=== PATIENT | female | born 1995 | race Caucasian/White ===

== ENCOUNTER 2022-09-28 16:00 | Outpatient (CLI) | payer OTHER ==
[2022-09-28 20:38] LABS: CALCIUM 8.9 mg/dL (8.5-10.3); CREATININE 0.8 mg/dL (0.4-1.0); POTASSIUM 3.4 mmol/L (3.5-5.0)
== END 2022-09-28 16:15 | disposition home or self-care (01) ==
LOC: LAB.N 16:00
PROVIDERS: ATTEND Physician Assistant Medical
DX: I10 Essential (primary) hypertension (principal)
CPT/HCPCS: 36415; 80048; 84443

== ENCOUNTER 2022-11-11 10:27 | Outpatient (CLI) | payer OTHER ==
[2022-11-11 10:39] LABS: HCT - HEMATOCRIT 43.1 % (37.0-47.0); HGB - HEMOGLOBIN 14.2 g/dL (12.0-16.0); MEAN CORPUSCULAR HEMOGLOBIN 30.5 pg (27.0-31.0); MEAN CORPUSCULAR HGB CONC 32.9 g/dL (32.0-36.0); MEAN CORPUSCULAR VOLUME 92.5 fL (81.0-99.0); RED BLOOD COUNT 4.66 10^6/uL (4.20-5.40); WHITE BLOOD COUNT 12.5 x10^3/uL (4.8-10.8)
[2022-11-11 10:45] LABS: ESTIMATED AVERAGE GLUCOSE 108 mg/dL (70-100); HEMOGLOBIN A1c% 5.4 % (4.27-6.07)
[2022-11-11 10:54] LABS: ALBUMIN 4.4 g/dL (3.2-5.5); ALBUMIN/GLOBULIN RATIO 1.1 (1.0-2.2); BILIRUBIN,TOTAL 0.4 mg/dL (0.2-1.0); CALCIUM 9.5 mg/dL (8.5-10.3); CREATININE 0.7 mg/dL (0.6-1.3); TOTAL PROTEIN 8.3 g/dL (6.4-8.9)
[2022-11-11 11:14] LABS: FERRITIN 25.9 ng/mL (11.0-306.8)
[2022-11-15 21:07] LABS: ANTINUCLEAR ANTIBODIES IFA Positive (.)
== END 2022-11-11 10:28 | disposition home or self-care (01) ==
LOC: LAB 10:27
PROVIDERS: ATTEND Nurse Practitioner
DX: O03.9 Complete or unspecified spontaneous abortion without complication (principal); N92.6 Irregular menstruation, unspecified
CPT/HCPCS: 36415; 80053; 82728; 83036; 85027; 86038

== ENCOUNTER 2022-12-12 16:49 | Outpatient (CLI) | payer OTHER | END 2022-12-12 16:50 | disposition home or self-care (01) | LOC: LAB 16:49 | PROVIDERS: ATTEND Nurse Practitioner | DX: Z32.01 Encounter for pregnancy test, result positive (principal) | CPT/HCPCS: 36415; 84702 ==

== ENCOUNTER 2022-12-15 12:23 | Outpatient (CLI) | payer OTHER | END 2022-12-15 12:24 | disposition home or self-care (01) | LOC: LAB 12:23 | PROVIDERS: ATTEND Nurse Practitioner | DX: Z32.01 Encounter for pregnancy test, result positive (principal) | CPT/HCPCS: 36415; 84702 ==

== ENCOUNTER 2023-01-09 18:13 | Outpatient (CLI) | payer OTHER ==
--- NOTE | 2023-01-10 09:09 | Ultrasound Report ---
PROCEDURE: OB First Trimester w/TV INDICATIONS: POSITIVE TEST OUTSIDE/PRIOR DATING DATA: Last menstrual period (LMP): Unknown. LMP-based estimated date of delivery (VEDA): Not applicable. First dating scan (date and location): 12/15/2022. Estimated date of delivery (VEDA) from first dating scan: 08/08/2023. TECHNIQUE: Real-time scanning was performed of the fetus and maternal pelvic organs, with image documentation. Endovaginal scanning was also performed to better visualize the fetus and maternal ovaries. COMPARISON: 12/15/2022 FINDINGS: Intrauterine gestational sac present. Embryo: pole measures 2.99 cm, corresponding to 9 weeks 6 days. Heart rate: 162 bpm. Other: No perigestational fluid collection. Measurement variability in dating: +/- 4 weeks by LMP, +/- 7 days by mean sac diameter (use before 6 weeks gestation if crown-rump length not able to be measured), +/- 5 days by crown-rump length (6-12 weeks gestation). Maternal organs: Ovaries appear within normal limits. IMPRESSION: Single living intrauterine at 9 weeks 6 days, VEDA of 08/08/2023. Findings are concordant wit h prior ultrasound dating. Reviewed by: Bryan Do on 01/10/2023 9:07 AM PDT Approved by: Bryan Do on 01/10/2023 9:07 AM PDT Station ID: [id number]
== END 2023-01-09 18:14 | disposition home or self-care (01) ==
LOC: DI 18:13
PROVIDERS: ATTEND Nurse Practitioner
DX: Z32.01 Encounter for pregnancy test, result positive (principal)

== ENCOUNTER 2023-01-10 08:00 | Outpatient (CLI) | payer OTHER ==
[2023-01-10 21:55] LABS: CHLAMYDIA TRACHOMATIS DNA NEGATIVE (NEGATIVE); NEISSERIA GONORRHOEAE DNA NEGATIVE (NEGATIVE); TRICHOMONAS VAGINALIS DNA NEGATIVE (NEGATIVE)
== END 2023-01-10 23:59 | disposition home or self-care (01) ==
LOC: LAB.WC 08:00
PROVIDERS: ATTEND Nurse Practitioner
DX: Z11.3 Encounter for screening for infections with a predominantly sexual mode of transmission (principal)
CPT/HCPCS: 87491; 87591; 87661

== ENCOUNTER 2023-01-11 12:29 | Outpatient (CLI) | payer OTHER | END 2023-01-11 12:30 | disposition home or self-care (01) | LOC: LAB 12:29 | PROVIDERS: ATTEND Nurse Practitioner | DX: Z34.90 Encounter for supervision of normal pregnancy, unspecified, unspecified trimester (principal) ==

== ENCOUNTER 2023-02-26 04:16 | Emergency (ER) | payer OTHER ==
[2023-02-26 04:46] VITALS: O2SAT 99
[2023-02-26 04:54] LABS: BILIRUBIN,URINE NEGATIVE (NEGATIVE); GLUCOSE, URINE (UA) NEGATIVE (NEGATIVE); KETONES,URINE (UA) NEGATIVE (NEGATIVE); LEUKOCYTE ESTERASE, URINE NEGATIVE (NEGATIVE); NITRITE,URINE NEGATIVE (NEGATIVE); OCCULT BLOOD,URINE LARGE (NEGATIVE); PH,URINE 5.5 PH (5.0-7.5); PROTEIN,URINE 100 mg/dL (NEGATIVE); UROBILINOGEN,URINE 0.2 (NORMAL) E.U./dL (NORMAL)
--- NOTE | 2023-02-26 05:07 | ED Physician Documentation ---
PD HPI FEMALE - Stated complaint Stated Complaint: FEMALE - Chief complaint Chief Complaint: UTI - History obtained from History obtained from: Patient - Additional information Additional information: Patient is a 27-year-old female G2, P0 Who is approximately 16 weeks Presenting for evaluation of noticing some blood in her urine earlier this morning. She denies dysuria, frequency. She does report some lower pelvic cramping starting this morning. She has not noticed any blood in her underwear. She has not noticed any blood when she wipes. She does have ongoing low back pain that is unchanged through the . No fever, dizziness, chest pain, difficulty breathing. She did see hematology for evaluation of Thrombocytosis and leukocytosis Which she has had a long history of.She called on-call OB this morning who recommended she come to the emergency department for evaluation as she has had a prior miscarriage. She is unsure how far along she was in her prior with a miscarriage as she states it was early on. Review of Systems Constitutional: denies: Fever Cardiac: denies: Chest pain / pressure Respiratory: denies: Dyspnea GI: denies: Abdominal Pain : reports: Hematuria PD PAST MEDICAL HISTORY - Past Medical History Past Medical History: Yes [employer]: Miscarriage(s) - Past Surgical History HEENT: Tonsil/Adenoidectomy - Present Medications Home Medications: Ambulatory Orders Medication Instructions Recorded Confirmed Doxylamine Succinate/Vit B6 1 each PO PRN PRN 01/06/23 02/26/23 [Doxylamine-Pyridoxine 10-10 mg] Metoclopramide [Reglan] 10 mg PO Q6H PRN 01/06/23 02/26/23 Pnv No.95/Ferrous Fum/Folic AC 1 each PO DAILY 01/06/23 02/26/23 [ Caplet] metFORMIN [Glucophage] 500 mg PO DAILY PM 01/06/23 02/26/23 Aspirin [Vazalore] 81 mg PO DAILY 02/26/23 02/26/23 Labetalol HCl 200 mg PO BID 02/26/23 02/26/23 Levothyroxine [Synthroid] 100 mcg PO QDAC 02/26/23 02/26/23 Sertraline HCl 150 mg PO DAILY 02/26/23 02/26/23 - Allergies Allergies/Adverse Reactions: Allergies Allergy/AdvReac Type Severity Reaction Status Date / Time amoxicillin Allergy Rash Verified 02/26/23 04:22 - Social History Does the pt smoke?: No Smoking Status: Never smoker PD ED PE NORMAL - General General: Alert and oriented X 3, No acute distress, Well developed/nourished - HEENT HEENT: Atraumatic - Respiratory Respiratory: No respiratory distress - Abdomen Abdomen: Normal bowel sounds, Soft, Non tender, Non distended - Derm Derm: Warm and dry - Neuro Neuro: Normal speech Results - Vitals Vitals: Vital Signs - 24 hr 02/26/23 02/26/23 04:30 05:29 Temperature 36.7 C Heart Rate 94 Respiratory 18 Rate Blood Pressure 148/106 H 136/87 H O2 Saturation 99 Oxygen O2 Source Room air - Labs Labs: Microbiology 02/26/23 04:34 Urine Culture - Preliminary Urine,Clean Catch CULTURE IN PROGRESS. RESULTS TO FOLLOW. Laboratory Tests 02/26/23 04:34 Urine Color LT RED Urine Clarity CLOUDY Urine pH 5.5 Ur Specific Floyd 1.025 Urine Protein 100 H Urine Glucose (UA) NEGATIVE Urine Ketones NEGATIVE Urine Occult Blood LARGE H Urine Nitrite NEGATIVE Urine Bilirubin NEGATIVE Urine Urobilinogen 0.2 (NORMAL) Ur Leukocyte Esterase NEGATIVE Urine RBC TNTC H Urine WBC 0-3 Ur Squamous Epith Cells RARE Squamous Urine Bacteria Rare Urine Mucus Few Strands Ur Microscopic Review INDICATED Urine Culture Comments NOT INDICATED PD Medical Decision Making - ED course Complexity details: reviewed results, d/w patient, d/w family ED course: Bedside ultrasound demonstrates intrauterine with positive cardiac activity and movements. heart rate is estimated around 150. Patient with blood in her urine noticed this morning. She is approximately 16 weeks . No blood in her underwear to suggest that this is a vaginal source. She has no flank tenderness or fever. No suprapubic tenderness. She does have a history of kidney stones but does not have pain to suggest an acute stone at this time. There is some blood noted in her urine. No other markers for infection. Rare bacteria. We will send a culture to see if there is bacteriuria in which case would recommend treatment as she is .Her urine is not grossly bloody but more blood-tinged. Patient counseled on continued hydration and need for close follow-up. She is advised on concerning symptoms to return for such as gross hematuria, pain, fever or any other concerns. Departure - Departure Disposition: 01 Home, Self Care Clinical Impression: Hematuria, with suprapubic cramping, antepartum Condition: Stable Instructions: ED Hematuria Follow-Up: Jud Montes De Oca ARNP [Provider Admit Priv/Credential] - Comments: At this time your baby has a good heartbeat and is moving around inside your uterus which is also a good sign. We did find that you have blood in your urine. Your urine does not show other markers for infection but I am still sending it for a culture to ensure there is no Sign of infection. As you are not having any pain or other symptoms at this time we have decided to hold off on lab testing and other imaging. However if you develop any worsening symptoms such as fever, flank pain, worsening bleeding, worsening pain or have any concerns please return to the emergency department. I would recommend close follow-up with your PATHOLOGY LAB TECHNICIAN. Discharge Date/Time: 02/26/23 05:32
[2023-02-26 05:12] LABS: CLARITY,URINE CLOUDY (CLEAR)
[2023-02-26 05:13] LABS: BACTERIA,URINE Rare /HPF (None Seen); MUCUS,URINE Few Strands; RBC,URINE TNTC /HPF (0-5); SQUAMOUS EPITHELIAL CELL,UR RARE Squamous (<= Few); WBC,URINE 0-3 /HPF (0-5)
[2023-02-26 05:33] VITALS: BP 136/87
== END 2023-02-26 05:32 | disposition home or self-care (01) ==
LOC: ED 04:16
DX: O99.891 Other specified diseases and conditions complicating pregnancy (principal); R31.0 Gross hematuria; Z3A.16 16 weeks gestation of pregnancy
CPT/HCPCS: 81001; 81003; 87086; 99283

== ENCOUNTER 2023-03-21 01:50 | Observation (INO) | payer OTHER ==
[2023-03-21] MEDS ORDERED: ACETAMINOPHEN 500 MG TABLET PO SCH (02:20)
[2023-03-21] MEDS ORDERED: LACTATED RINGERS 1,000 ML IV ONE (02:27)
[2023-03-21] MEDS ORDERED: MORPHINE 2 MG/ML CARPUJECT IVP SCH ×2 (02:30→05:16)
[2023-03-21] MEDS ORDERED: ONDANSETRON 4 MG/2 ML VIAL IVP PRN (02:38)
[2023-03-21 02:39] LABS: BILIRUBIN,URINE NEGATIVE (NEGATIVE); GLUCOSE, URINE (UA) NEGATIVE (NEGATIVE); KETONES,URINE (UA) TRACE mg/dL (NEGATIVE); LEUKOCYTE ESTERASE, URINE NEGATIVE (NEGATIVE); NITRITE,URINE NEGATIVE (NEGATIVE); OCCULT BLOOD,URINE TRACE-INTA (NEGATIVE); PH,URINE 6.5 PH (5.0-7.5); PROTEIN,URINE NEGATIVE (NEGATIVE); UROBILINOGEN,URINE 0.2 (NORMAL) E.U./dL (NORMAL)
[2023-03-21 02:46] LABS: BACTERIA,URINE Rare /HPF (None Seen); CLARITY,URINE CLEAR (CLEAR); RBC,URINE 0-5 /HPF (0-5); SQUAMOUS EPITHELIAL CELL,UR FEW Squamous (<= Few); WBC,URINE 0-3 /HPF (0-5)
[2023-03-21 03:08] VITALS: O2SAT 98
[2023-03-21] MEDS: LACTATED RINGERS 1,000 ML IV ONE ×2 (05:12→07:38)
[2023-03-21 06:25] LABS: BASOPHILS % (AUTO) 0.3 %; EOSINOPHILS % (AUTO) 2.3 %; HCT - HEMATOCRIT 35.8 % (37.0-47.0); HGB - HEMOGLOBIN 11.8 g/dL (12.0-16.0); LYMPHOCYTES % (AUTO) 12.1 %; MEAN CORPUSCULAR HEMOGLOBIN 30.8 pg (27.0-31.0); MEAN CORPUSCULAR VOLUME 93.5 fL (81.0-99.0); MEAN PLATELET VOLUME 9.5 fL (7.9-10.8); MONOCYTES % (AUTO) 5.6 %; NEUTROPHILS % (AUTO) 79.1 %; PLT - PLATELET COUNT 500 10^3/uL (130-450); RED BLOOD COUNT 3.83 10^6/uL (4.20-5.40); RED CELL DISTRIBUTION WIDTH 14.3 % (12.0-15.0); WHITE BLOOD COUNT 23.2 x10^3/uL (4.8-10.8)
[2023-03-21 06:27] LABS: ABNORMAL LYMPHS % (MANUAL) 0 %
[2023-03-21 06:40] LABS: ALBUMIN 3.8 g/dL (3.2-5.5); ALBUMIN/GLOBULIN RATIO 1.1 (1.0-2.2); BILIRUBIN,TOTAL 0.3 mg/dL (0.2-1.0); CALCIUM 11.4 mg/dL (8.5-10.3); POTASSIUM 3.9 mmol/L (3.5-4.5); TOTAL PROTEIN 7.3 g/dL (6.4-8.9)
[2023-03-21 06:49] LABS: BAND NEUTROPHILS % (MANUAL) 15 %; DIFFERENTIAL COMMENT MANUAL DIFFERENTIAL; EOSINOPHILS # (MANUAL) 0.7 10^3/uL (0-0.7); LYMPHOCYTES # (MANUAL) 1.4 10^3/uL (1.5-3.5); LYMPHOCYTES % (MANUAL) 6 %; MONOCYTES # (MANUAL) 0.7 10^3/uL (0.0-1.0); NEUTROPHILS # (MANUAL) 20.4 10^3/uL (1.5-6.6); PLATELET ESTIMATE, MANUAL INCREASED (>450,000) (NORMAL); RBC MORPHOLOGY (MULTIPLE) NORMAL APPEARANCE (NORMAL)
--- NOTE | 2023-03-21 08:13 | HISTORY & PHYSICAL EXAMINATION ---
Admit History - Visit Reason Visit Reason: Other (kidney stone) - : 2 Parity: 0 Premature: 0 Ectopic: 0 : 1 Care: positive: [facility], Other (KG murry) Risk/History: positive: High risk Complications This : positive: Other (LMP: unknown VEDA by LMP: unknown US: 12/15/22 6+4 Final VEDA: 08/08/2023 MEDICALLY COMPLEX PATIENT ANC c/b: 1. chronic HTN - started on nifedapine initially, did not control BP, now on labetalol 200mg BID [ ] on LDASA [ ] baseline labs done by [facility] 03/10 - paleology professor 0.62 [ ] will need N) Smoking Status: Never smoker - Mother's Labs Mother's Blood Type: positive: A Mother's RH: positive: Positive GBS: positive: Other Rubella Status: positive: Immune - Other Maternal History Other Maternal History: ANL: A+/abneg/RI/RPRNR/HepBneg/HIVneg/GCCTnegneg ANC c/b: LMP: unknown US: 12/15/22 6+4 Final VEDA: 08/08/2023 MEDICALLY COMPLEX PATIENT ANC c/b: 1. chronic HTN - started on nifedapine initially, did not control BP, now on labetalol 200mg BID [ ] on LDASA [ ] baseline labs done by [facility] 03/10 - paleology professor 0.62 [ ] will need NSTs from 32w on, growth U/S monthly after 24w [ ] IOL 2. hypothyroidism - on synthroid, was off of meds at start of [ ] needs TSH Q trimester: : 3. BLOOD DYSCRAZIAS - elevated plts (>500), elevated WBC, has seen heme/ onc before - this has been present since teenager, s/p bone marrow biopsy, no diagnosis at this time. 4. fibroid - 4cm, fundal, followed by [facility] 5. obesity - on ASA - if BMI > 50, cannot deliver on [place] - level II with [facility] 6. LONG STANDING h/o KIDNEY STONES - several lithotripsies in her life - genetic - calcium based - ran out of J and got another one, creatinine 03/21 increased from 0.7 baseline to 1.0. U/S done -- no urologist on [place], sent out. 6. VZNI / "unsure" pap status [ ] pap PP [ ] vaccinate PP 7. [place] [ ] FOB - CAM - deploying, patient will move to [place] to be with her family during this -- given copy of her records 03/21 8. Anxiety / Depression [ ] on sertraline 150mg [ ] EPDS Q trimester [ ] establish care with mental health provider - care with post- 9. dated by 1 tri U/S - prior LMP was miscarriage, 2 weeks before + UPT 10. Known migraine patient - M gave her sumatriptan, she has not taken it 11. positive OTONIEL - "they think I have an autoimmune condition, and all the other tests were negative" PMH: see above PSH: bone marrow biopsy, tonsillectomy, several lithotripsies - last apr 2022 POB: unknown gestational age at loss - first trimester PGYN: unsure when her last pap was has PCOS - had been on metformin, stopped recently so she could take OGTT Meds: PNV, sertraline, synthroid, ASA, labetalol 200mg BIG All: AMOX/ PCNs Soc: neg x3, lives with FOB "Cam" - [place] Fam: kidney stones - HPI Vital Signs Temperature 98.1 F 03/21/23 02:00 Heart Rate 86 03/21/23 02:00 Respiratory Rate 16 03/21/23 02:00 Blood Pressure 118/74 03/21/23 02:00 Temperature 98.1 F 03/21/23 06:53 Heart Rate 75 03/21/23 06:53 Respiratory Rate 16 03/21/23 06:53 Blood Pressure 127/77 03/21/23 06:53 O2 Saturation 98 03/21/23 06:53 If not protocol: Oxygen Flow, liters/minute Meds/Allgy - Home Medications Home Medications: Ambulatory Orders Medication Instructions Recorded Confirmed Doxylamine Succinate/Vit B6 1 each PO PRN PRN 01/06/23 02/26/23 [Doxylamine-Pyridoxine 10-10 mg] Metoclopramide [Reglan] 10 mg PO Q6H PRN 01/06/23 02/26/23 Pnv No.95/Ferrous Fum/Folic AC 1 each PO DAILY 01/06/23 02/26/23 [ Caplet] metFORMIN [Glucophage] 500 mg PO DAILY PM 01/06/23 02/26/23 Aspirin [Vazalore] 81 mg PO DAILY 02/26/23 02/26/23 Labetalol HCl 200 mg PO BID 02/26/23 02/26/23 Levothyroxine [Synthroid] 100 mcg PO QDAC 02/26/23 02/26/23 Sertraline HCl 150 mg PO DAILY 02/26/23 02/26/23 - Allergies Allergies/Adverse Reactions: Allergies Allergy/AdvReac Type Severity Reaction Status Date / Time amoxicillin Allergy Rash Verified 02/26/23 04:22 Physical - Abdominal Exam Vital Signs: Temp Pulse Resp BP Pulse Ox O2 Flow Rate 98.1 F 75 16 127/77 98 03/21/23 06:53 03/21/23 06:53 03/21/23 06:53 03/21/23 06:53 03/21/23 06:53 Uterine Resting Tone: positive: Soft - Speculum Exam Speculum Exam Performed: positive: No Plan for Labor - Plan For Labor I expect patient to be DC'd or transferred within 96 hours.: Yes Plan for Labor: 27yo with kidney stone on L that is obstructing L ureter -- compromizing kidney -- U/S shows NO L ureteral jet, AND L hydronephrosis -- Shipping Track Supervisor from 0.62 03/10 -- to 1.0 today 03/21. although 1.0 is considered wnl outside of , it is elevated for and a marked increase from 03/10 of note - no improvement with 2L IVF of note also -- she "loves" orange juice and typically drinks several glasses a day. She ran out of OJ two days ago, and she has known calcium based kidney stones. plan[place] to urologists in the area will set up with outpatient or have pt present to ED at a hospital with on-call urologist, depending on what on-call urologist we can find recommends. after discussion with [employer] information services manager urologist: -- no lithotripsy in -- could consider stent / percu nephrostomy -- and we're not at that point yet - so D/C home with pain meds and precautions after discussing this with patient and her mom: -- patient with complex history -- limited ability to predict sepsis 2'2 baseline WBC / plt dyscrazia -- pt unable to drink water when she's in this much pain -- will keep under obs here for pain control, hydration, and re-testing of labs also putting in STAT urology referral through clinic in order to have her evaluated for possible stent.
--- NOTE | 2023-03-21 08:45 | Ultrasound Report ---
PROCEDURE: Retroperitoneal INDICATIONS: kidney stone - increasing creatinine TECHNIQUE: Real-time scanning was performed of the retroperitoneal organs, with image documentation. COMPARISON: None. FINDINGS: Kidneys: Kidneys are normal in size. Right kidney measures 11.9 cm long; left kidney measures 14.2 cm long. Right renal cortical thickness is 1.0 cm; left renal cortical thickness is 1.7 cm. There ar e 2 nonobstructing stones in the left kidney, including an upper pole stone measuring 9 mm and a lowe r pole stone measuring 6 mm. There is mild to moderate left hydronephrosis. The left ureter is not vi sualized. Bladder: Pre-void bladder volume is 138.0 mL. Post-void residual is 0 mL. Pre-void images demonstr ate no intraluminal masses or stones. On pre-void images, unilateral right ureteral jet is noted wit h color Doppler interrogation. (Of note, ureteral jets may not be detectable in up to 25% of cases d ue to insufficient differences in specific gravity between ureteral and bladder urine). Miscellaneous: No free abdominal fluid. There is a living second trimester intrauterine present with a heart rate is 140 bpm. IMPRESSION: 1. Living second trimester intrauterine . 2. There are bilateral nonobstructing calyceal stones involving the left kidney. 3. There is mild to moderate left hydronephrosis as well as nonvisualization of a left ureteral jet. The presence of left hydronephrosis may potentially simply be related to . However, an obstr ucting left ureteral stone is not excluded. Comment: Recommend clinical correlation and urological consultation. Reviewed by: Delfin Hollins MD on 03/21/2023 8:44 AM PST Approved by: Delfin Hollins MD on 03/21/2023 8:44 AM PST Station ID: [id number]
[2023-03-21] MEDS ORDERED: SODIUM CHLORIDE FLUSH 0.9% 10 ML SYRINGE IVP PRN (09:10)
[2023-03-21] MEDS ORDERED: fentaNYL 100 MCG/2 ML VIAL IVP PRN (09:10)
[2023-03-21] MEDS ORDERED: MORPHINE 2 MG/ML CARPUJECT IVP PRN ×2 (10:03→15:59)
[2023-03-21] MEDS: SODIUM CHLORIDE FLUSH 0.9% 10 ML SYRINGE IVP SCH ×2 (10:36→18:00)
[2023-03-21] MEDS: LABETALOL 100 MG TABLET PO SCH ×2 (10:37→22:37)
[2023-03-21] MEDS: LEVOTHYROXINE 100 MCG TABLET PO SCH (10:37)
[2023-03-21] MEDS: ONDANSETRON 4 MG/2 ML VIAL IVP PRN ×2 (10:44→15:24)
[2023-03-21] MEDS: MORPHINE 2 MG/ML CARPUJECT IVP PRN ×3 (10:44→15:24)
[2023-03-21] MEDS: LACTATED RINGERS 1,000 ML IV SCH ×3 (12:39→20:42)
[2023-03-21] MEDS: oxyCODONE 5 MG TABLET PO PRN ×2 (17:45→21:39)
[2023-03-21] MEDS ORDERED: TAMSULOSIN 0.4 MG CAPSULE PO SCH (18:00)
[2023-03-21] MEDS ORDERED: ASPIRIN EC 81 MG TABLET PO ONE (20:47)
[2023-03-21] MEDS ORDERED: SERTRALINE 50 MG TABLET PO SCH (21:00)
[2023-03-21] MEDS ORDERED: ASPIRIN CHEW 81 MG TABLET PO SCH (21:00)
[2023-03-22] MEDS: LACTATED RINGERS 1,000 ML IV SCH ×4 (00:49→12:13)
[2023-03-22] MEDS: oxyCODONE 5 MG TABLET PO PRN (01:37)
[2023-03-22] MEDS: SODIUM CHLORIDE FLUSH 0.9% 10 ML SYRINGE IVP SCH ×3 (02:00→15:51)
--- NOTE | 2023-03-22 07:28 | PROVIDER PROGRESS NOTE ---
Subjective - Subjective Subjective: Subjective: Patient is a 27-year-old -0-1-0 at 20 weeks 1 day gestation Overnight events: Passed a 5 mm stone. Still having left-sided pain, likely from additional larger stone. Objective: Physical exam: Constitutional: alert, oriented, no acute distress Cardiovascular: Regular rate and rhythm. No murmurs, rubs, gallops. Respiratory: No respiratory distress. Clear to auscultation bilaterally. Extremities: No swelling or tenderness. No cords. Distal pulses intact. Psych: affect and mood appropriate, normal interaction, good eye contact. Assessment and plan 1. Nephrolithiasis, recurrent, male symptomatic -Passed 1 stone, other stone may be too large. -Continue with pain control. Ideally would build to transition to home medications -Continue IV and oral hydration as well as tamsulosin -Referral to urology pending 2. 20 weeks gestation -Heart tones every shift 3. Chronic hypertension: -Continues low-dose aspirin. Labetalol 200 mg twice daily. Blood pressure normal. 4. Hypothyroidism -Will increase her home levothyroxine dose. 5. Anxiety and depression -Mood is good today. Continue sertraline. 6. Blood dyscrasias: -No acute change Objective - Vital Signs/Intake & Output Vital Signs: Vital Signs x48h Temp Pulse Resp BP Pulse Ox 03/22/23 04:14 89 18 107/69 03/22/23 01:38 97.9 F 90 16 118/70 98 Intake & Output: Intake & Output 03/19/23 03/20/23 03/21/23 03/22/23 23:59 23:59 23:59 23:59 Intake Total 4220.833 1995.833 Output Total 2900 550 Balance 2754.957 8493.833 - Lab Results Fish Bones: 03/21/23 05:50 03/21/23 05:50 Other Labs: Lab Results x24hrs 03/22/23 Range/Units 06:01 TSH 6.00 H (0.34-5.60) uIU/mL
[2023-03-22] MEDS: LABETALOL 100 MG TABLET PO SCH (08:29)
[2023-03-22] MEDS: LEVOTHYROXINE 100 MCG TABLET PO SCH (08:33)
[2023-03-22 08:40] VITALS: BP 125/78
[2023-03-22] MEDS: ACETAMINOPHEN 500 MG TABLET PO SCH ×2 (08:49→15:16)
[2023-03-22] MEDS ORDERED: TAMSULOSIN 0.4 MG CAPSULE PO SCH (11:18)
[2023-03-22] MEDS ORDERED: SERTRALINE 50 MG TABLET PO SCH (11:19)
[2023-03-22] MEDS ORDERED: ASPIRIN CHEW 81 MG TABLET PO SCH (11:19)
--- NOTE | 2023-03-22 15:27 | DISCHARGE SUMMARY ---
Discharge Summary Admit Date: 03/21/23 Discharge Date: 03/22/23 Discharging Provider: Aaron Sanabria MD Code Status: Attempt Resuscitation Condition at Discharge: Stable Discharge Disposition: 01 Home, Self Care - DIAGNOSES Admission Diagnoses: 20 weeks gestation Nephrolithiasis Chronic hypertension Blood dyscrasias Uterine fibroids Obesity Discharge Diagnoses with Status of Each Condition: 20 weeks gestation Nephrolithiasis Chronic hypertension Blood dyscrasias Uterine fibroids Obesity Stable: Passed 2 stones, although large stone likely still present - HPI History of Present Illness: Pain much better today. Has not required pain medications. Desires to go home. Will follow-up with urology. - HOSPITAL COURSE Hospital Course: Patient was admitted at 20 weeks gestation with nephrolithiasis. She has a long history of nephrolithiasis and feels like the onset of this is similar. She was found to have 2 obstructing stones and was started on pain medications and tamsulosin. She did pass 1 large stone as well as a smaller stone. The larger stone is likely still inside, but her pain is greatly improved. She does have follow-up arranged with urology and desired to go home and was discharged in good condition. - ALLERGIES Allergies/Adverse Reactions: Allergies Allergy/AdvReac Type Severity Reaction Status Date / Time amoxicillin Allergy Rash Verified 02/26/23 04:22 - MEDICATIONS Home Medications: Ambulatory Orders Medication Instructions Recorded Confirmed Doxylamine Succinate/Vit B6 1 each PO PRN PRN 01/06/23 02/26/23 [Doxylamine-Pyridoxine 10-10 mg] Metoclopramide [Reglan] 10 mg PO Q6H PRN 01/06/23 02/26/23 Pnv No.95/Ferrous Fum/Folic AC 1 each PO DAILY 01/06/23 02/26/23 [ Caplet] metFORMIN [Glucophage] 500 mg PO DAILY PM 01/06/23 02/26/23 Aspirin [Vazalore] 81 mg PO DAILY 02/26/23 02/26/23 Labetalol HCl 200 mg PO BID 02/26/23 02/26/23 Levothyroxine [Synthroid] 100 mcg PO QDAC 02/26/23 02/26/23 Sertraline HCl 150 mg PO DAILY 02/26/23 02/26/23 Tamsulosin [Flomax] 0.4 mg PO DAILY #10 cap 03/22/23 oxyCODONE [Roxicodone] 5 mg PO Q6H PRN #10 tablet 03/22/23 - LABS Result Diagrams: 03/21/23 05:50 03/21/23 05:50 - FOLLOW UP Follow Up: With [facility] - TIME SPENT Time Spent in Discharge (Minutes): 30
[2023-03-22] MEDS: ONDANSETRON 4 MG/2 ML VIAL IVP PRN (15:49)
== END 2023-03-22 16:10 | disposition home or self-care (01) ==
LOC: WFO 01:50 → FBP 01:52 → WFO 09:09 → FBP 09:10
PROVIDERS: ADMIT Obstetrics & Gynecology; ATTEND Obstetrics & Gynecology
DX: O99.891 Other specified diseases and conditions complicating pregnancy (principal); N13.2 Hydronephrosis with renal and ureteral calculous obstruction; O16.2 Unspecified maternal hypertension, second trimester; Z3A.20 20 weeks gestation of pregnancy; O34.12 Maternal care for benign tumor of corpus uteri, second trimester; D25.9 Leiomyoma of uterus, unspecified; O99.212 Obesity complicating pregnancy, second trimester; O99.342 Other mental disorders complicating pregnancy, second trimester; F41.9 Anxiety disorder, unspecified; F32.A Depression, unspecified; O99.352 Diseases of the nervous system complicating pregnancy, second trimester; G43.909 Migraine, unspecified, not intractable, without status migrainosus; O99.282 Endocrine, nutritional and metabolic diseases complicating pregnancy, second trimester; E03.9 Hypothyroidism, unspecified
CPT/HCPCS: 36415; 76770; 80053; 81001; 84443; 85025; 96361; 96374; 96375; 96376; 99215; A9270; G0378; J7120

== ENCOUNTER 2023-03-24 18:55 | Outpatient (CLI) | payer OTHER ==
--- NOTE | 2023-03-25 16:46 | Ultrasound Report ---
PROCEDURE: OB Detailed Eval INDICATIONS: SUPERVISION OF OUTSIDE/PRIOR DATING DATA: Last menstrual period (LMP): Unknown. First dating scan (date and location): December 15, 2022, [facility]. Estimated date of delivery (VEDA) from first dating scan: 08/08/2023. The below data below was generated using the VEDA of 08/08/2023 TECHNIQUE: Real-time scanning was performed of the fetus, with image documentation and biometric measurements. Endovaginal scanning: Not performed. COMPARISON: None. FINDINGS: Evaluation is markedly limited secondary to body habitus. General: A single living intrauterine gestation is present. Presentation: Variable Placenta: Placental position is posterior, without previa. Amniotic fluid index: 13 cm, within normal limits for gestational age. heart rate: 160 beats per minute. Maternal cervical canal: 4.6 cm long; normal length is 2.5 cm or more. biometrics: Biparietal diameter: 4.74 cm, 20 weeks and 2 days, 45.2% Head circumference: 18.02 cm, 20 weeks and 3 days, 42.2% Abdominal circumference: 17.26 cm, 22 weeks and 1 day, 91.5% Femur length: 3.28 CT abdomen, 20 weeks and 2 days, 35.1% Estimated gestational age from initial scan: 20 weeks and 3 days Composite gestational age from present scan: 20 weeks and 4 days Estimated weight and percentile: 406.3 g, 85.1% Measurement variability in biometric dating: +/- 10 days from 12-20 weeks gestation, +/- 2 weeks from 20-30 weeks gestation, +/- 3 weeks at 30 weeks gestation or later. Anatomic survey: Limited Neuro: Ventricles are normal at less than 10 mm. Cisterna magna is normal at 3-11 mm. Cerebellum i s normal in size and morphology. Nuchal skin fold: Normal at less than 6 mm between 14 and 20 weeks gestational age. Face: Nose and lips are grossly normal. Facial profile and orbits are not well seen. Spine: Limited views are normal. No evidence for spina bifida. Heart: Not well seen. Diaphragm: Diaphragm is intact. Stomach: Left-sided stomach is present. Kidneys: No hydronephrosis. Normal is less than 5 mm in 2nd trimester, less than 7 mm in 3rd trimester. Cord: 3 vessel cord has orthotopic insertion. Bladder: Normal in size. Extremities: Left upper limb is normal. Right lower extremity, left foot and right hand are not image d. Miscellaneous: Stable known uterine fibroid measuring 4.4 x 4.6 x 4.9 cm (volume of 51 mL) IMPRESSION: Evaluation is markedly limited secondary to body habitus. 1.Single living intrauterine gestation demonstrates appropriate interval growth. Estimated weig ht is 406.3 g at 85.1% 2.Visualized anatomy is within normal limits. Recommend short interval follow-up to re-image the nose , lips, facial profile, heart, right lower extremity, left foot, right hand and spine. Reviewed by: Marcos Flannery MD on 03/25/2023 4:44 PM PST Approved by: Marcos Flannery MD on 03/25/2023 4:44 PM PST Station ID: [id number]
== END 2023-03-24 18:56 | disposition home or self-care (01) ==
LOC: DI 18:55
PROVIDERS: ATTEND Nurse Practitioner
DX: O99.212 Obesity complicating pregnancy, second trimester (principal); O09.892 Supervision of other high risk pregnancies, second trimester; O34.12 Maternal care for benign tumor of corpus uteri, second trimester; D25.9 Leiomyoma of uterus, unspecified; Z3A.20 20 weeks gestation of pregnancy

== ENCOUNTER 2023-03-28 15:08 | Outpatient (CLI) | payer OTHER | END 2023-03-28 15:09 | disposition home or self-care (01) | LOC: LAB 15:08 | PROVIDERS: ATTEND Nurse Practitioner | DX: O09.892 Supervision of other high risk pregnancies, second trimester (principal) | CPT/HCPCS: 36415; 82950 ==

== ENCOUNTER 2023-04-04 16:52 | Outpatient (CLI) | payer OTHER ==
--- NOTE | 2023-04-07 16:35 | Ultrasound Report ---
PROCEDURE: OB Follow up INDICATIONS: SUPERVISION OF OUTSIDE/PRIOR DATING DATA: Last menstrual period (LMP): Unknown. LMP-based estimated date of delivery (VEDA): Unknown. First dating scan (date and location): 12/15/2022. Estimated date of delivery (VEDA) from first dating scan: 08/07/2022. The below data below was generated using the ultrasound VEDA of 1423 TECHNIQUE: Real-time scanning was performed of the fetus, with image documentation and biometric measurements. COMPARISON: OB ultrasound 03/24/2023 FINDINGS: General: A single living intrauterine gestation is present. Presentation: Breech Placenta: Placental position is posterior, without previa. Amniotic fluid index: 15.2 cm, within normal limits for gestational age. heart rate: 136 beats per minute. Maternal cervical canal: Not assessed biometrics: Estimated gestational age from initial scan: 22 weeks 2 days Other: Previously nonvisualized right lower extremity and right hand are within normal limits. Visualized po rtions of the heart and outflow tracts are within normal limits. Facial profile is not well seen alth ough nose and lips are within normal limits. IMPRESSION: Single live intrauterine with gestational age today of 22 weeks 2 days. Anatomic structures compared to prior exam are visualized as above. There remains a limited visualiza tion of facial profile. Reviewed by: Millie Don MD on 04/07/2023 4:34 PM PST Approved by: Millie Don MD on 04/07/2023 4:34 PM PST Station ID: [id number]
== END 2023-04-04 16:53 | disposition home or self-care (01) ==
LOC: DI 16:52
PROVIDERS: ATTEND Nurse Practitioner
DX: O09.892 Supervision of other high risk pregnancies, second trimester (principal); Z3A.22 22 weeks gestation of pregnancy

== ENCOUNTER 2023-05-15 11:36 | Outpatient (CLI) | payer OTHER ==
[2023-05-15 12:51] LABS: HCT - HEMATOCRIT 35.3 % (37.0-47.0); HGB - HEMOGLOBIN 11.3 g/dL (12.0-16.0); MEAN CORPUSCULAR HEMOGLOBIN 30.5 pg (27.0-31.0); MEAN CORPUSCULAR VOLUME 95.4 fL (81.0-99.0); MEAN PLATELET VOLUME 8.5 fL (7.9-10.8); RED BLOOD COUNT 3.7 10^6/uL (4.20-5.40); RED CELL DISTRIBUTION WIDTH 14.1 % (12.0-15.0)
[2023-05-15 13:24] LABS: THYROID STIMULATING HORMONE 2.46 uIU/mL (0.34-5.60)
== END 2023-05-15 11:37 | disposition home or self-care (01) ==
LOC: LAB 11:36
PROVIDERS: ATTEND Nurse Practitioner
DX: O09.892 Supervision of other high risk pregnancies, second trimester (principal); O99.282 Endocrine, nutritional and metabolic diseases complicating pregnancy, second trimester; E03.9 Hypothyroidism, unspecified
CPT/HCPCS: 36415; 82950; 84439; 84443; 85027

== ENCOUNTER 2023-05-19 17:24 | Outpatient (CLI) | payer OTHER ==
[2023-05-19 17:54] VITALS: BP 130/87
--- NOTE | 2023-05-20 22:12 | PROCEDURE REPORT ---
- HPI Diagnosis/Indication for NST: Gestational Diabetes Current EDU 08/08/23 Gestation 28 Weeks and 3 Days 2 Para 1 Vital Signs Temperature 98.6 F 05/19/23 17:44 Heart Rate 88 05/19/23 17:44 Respiratory Rate 18 05/19/23 17:44 Blood Pressure 130/87 H 05/19/23 17:44 Temperature 98.6 F 05/19/23 17:44 Heart Rate 88 05/19/23 17:44 Respiratory Rate 18 05/19/23 17:44 Blood Pressure 130/87 H 05/19/23 17:44 O2 Saturation If not protocol: Oxygen Flow, liters/minute - NST Procedure NST Procedure Start Date 05/19/23 Start Time 17:43 Stop Time 18:24 Vibroacoustic Stimulation Used No Patient States Movement Yes - Results and Plan Plan: Patient is a 28-year-old -0-0-1 at 20 weeks 3 days gestation here for NST. NST Performed 05/19/2023 NST Read 05/19/2023 FHT: 130 bpm baseline, moderate variability, accelerations present, no decelerations. Reactive NST [place]: Quiescent NELSON: 27 cm Diagnosis 28 weeks gestation Gestational diabetes Managed with oral antihyperglycemics Elevated NELSON without diagnosis of polyhydramnios Continue with scheduled OB care
== END 2023-05-19 18:30 | disposition home or self-care (01) ==
LOC: WFO 17:24 → FBP 17:26 → WFO 18:30
PROVIDERS: ATTEND Obstetrics & Gynecology
DX: O26.843 Uterine size-date discrepancy, third trimester (principal); O24.415 Gestational diabetes mellitus in pregnancy, controlled by oral hypoglycemic drugs; Z3A.28 28 weeks gestation of pregnancy
CPT/HCPCS: 59025